=== PATIENT | female | born 1965 | race African-American/Black ===

== ENCOUNTER 2021-06-14 11:18 | Outpatient (CLI) | payer BC, OTHER | END 2021-06-14 11:19 | disposition home or self-care (01) | LOC: CSHRAD 11:18 | PROVIDERS: ATTEND Psychiatry & Neurology Neurology | DX: M25.562 Pain in left knee (principal); M54.50 Low back pain, unspecified; M47.817 Spondylosis without myelopathy or radiculopathy, lumbosacral region | CPT/HCPCS: 72100 ==